=== PATIENT | female | born 1955 | race Caucasian/White ===

== ENCOUNTER 2021-03-31 10:36 | Outpatient (CLI) | payer OTHER, SELFPAY ==
--- NOTE | 2021-03-31 10:46 | MM_ITS ---
WS: [id number] BILATERAL DIGITAL SCREENING MAMMOGRAPHY WITH CAD CLINICAL INFORMATION: SCREENING HISTORY: Screening mammogram. No current complaints. COMPARISON: TECHNIQUE: Bilateral CC and MLO views. FINDINGS: The breasts are composed of heterogeneous fibroglandular density tissue, which can limit the detectio n of small underlying mass lesions. Lucent centered calcifications. Vascular calcification. A few pun ctate calcifications right breast. No suspicious mass, asymmetry, calcifications, or architectural di stortion. No evidence of malignancy. MM/[place] [id number] IMPRESSION: BI-RADS: 2-Benign FOLLOW UP: 1 Year Follow-up Recommend return to annual screening mammography.
== END 2021-03-31 10:37 | disposition home or self-care (01) ==
LOC: RADSHAW 10:40
PROVIDERS: Family Provider Family Medicine; PCP Family Medicine; Visit Provider Family Medicine
DX: Z12.31 Encounter for screening mammogram for malignant neoplasm of breast (principal)
CPT/HCPCS: 77067

== ENCOUNTER 2021-11-28 09:55 | Outpatient (CLI) | payer MEDICARE, SELFPAY ==
[2021-11-28 09:30] VITALS: BP 141/95; PULSE 80; RESP 16; TEMP 36.8; O2SAT 95; BMI 29.2
[2021-11-28 10:23] VITALS: BP 145/96; PULSE 76; RESP 16; TEMP 36.6; O2SAT 96
[2021-11-28 11:45] VITALS: BP 136/99; PULSE 70; RESP 16; TEMP 36.9; O2SAT 95
== END 2021-11-28 09:56 | disposition home or self-care (01) ==
LOC: OPS 10:30
PROVIDERS: PCP Family Medicine; Visit Provider Nurse Practitioner
DX: U07.1 COVID-19 (principal)
CPT/HCPCS: 96365

== ENCOUNTER 2022-06-24 14:29 | Outpatient (CLI) | payer MEDICARE, BC, SELFPAY ==
--- NOTE | 2022-06-24 14:37 | MM_ITS ---
WS: [id number] BILATERAL 3D TOMOSYNTHESIS DIGITAL SCREENING MAMMOGRAPHY WITH CAD CLINICAL INFORMATION: SCREENING HISTORY: Screening mammogram. No current complaints. COMPARISON: March 31, 2021 TECHNIQUE: Bilateral CC and MLO views. FINDINGS: The breasts are composed of heterogeneous fibroglandular density tissue, which can limit the detectio n of small underlying mass lesions. No suspicious mass, asymmetry, calcifications, or architectural d istortion. No evidence of malignancy. MM/[place] [id number] IMPRESSION: BI-RADS: 1-Negative FOLLOW UP: 1 Year Follow-up Recommend return to annual screening mammography.
== END 2022-06-24 14:30 | disposition home or self-care (01) ==
LOC: RAD 14:30
PROVIDERS: PCP Family Medicine; Visit Provider Family Medicine
DX: Z12.31 Encounter for screening mammogram for malignant neoplasm of breast (principal)
CPT/HCPCS: 77063; 77067

== ENCOUNTER 2022-08-30 15:20 | Outpatient (CLI) | payer MEDICARE, BC, SELFPAY ==
--- NOTE | 2022-08-30 15:39 | XR_ITS ---
WS: [id number] SCREENING DEXA SCAN [place] CLINICAL INFORMATION: POST MENOPAUSAL COMPARISON: None. FINDINGS: The L1-L4 bone mineral density measures 0.791 g/cm2. This corresponds to a T score score of -3.2 and Z score of -2.1. Left femoral neck bone mineral density measures 0.720 g/cm2. This corresponds to a T score of -2.3 an d Z score of -1.4. Right femoral neck bone mineral density measures 0.711 g/cm2. This corresponds to a T score -2.4of an d Z score of -1.5. Mean femoral neck bone mineral density measures 0.715 g/cm2. This corresponds to a T score of -2.3 an d Z score of -1.4. XR/XR DEXA axial skeleton* [id number] IMPRESSION: Osteoporosis lumbar spine. Osteopenia femoral necks. Patient's FRAX calculated 10 year probability for major osteoporotic fracture i s 22.5 % and osteoporotic hip fracture is 5.4%.
== END 2022-08-30 15:21 | disposition home or self-care (01) ==
LOC: RAD 15:21
PROVIDERS: PCP Family Medicine; Visit Provider Family Medicine
DX: Z78.0 Asymptomatic menopausal state (principal)
CPT/HCPCS: 77080

== ENCOUNTER 2024-03-12 14:49 | Outpatient (CLI) | payer MEDICARE, OTHER, SELFPAY ==
--- NOTE | 2024-03-12 14:53 | MM_ITS ---
WS: [id number] BILATERAL 3D TOMOSYNTHESIS DIGITAL SCREENING MAMMOGRAPHY WITH CAD CLINICAL INFORMATION: SCREENING HISTORY: Screening mammogram. No current complaints. COMPARISON: 2021 TECHNIQUE: Bilateral CC and MLO views. FINDINGS: The breasts are composed of heterogeneous fibroglandular density tissue, which can limit the detectio n of small underlying mass lesions. No suspicious mass, asymmetry, calcifications, or architectural d istortion. No evidence of malignancy. MM/[place] [id number] IMPRESSION: BI-RADS: 1-Negative FOLLOW UP: 1 Year Follow-up Recommend return to annual screening mammography.
== END 2024-03-12 14:50 | disposition home or self-care (01) ==
LOC: RAD 14:49
PROVIDERS: PCP Family Medicine; Visit Provider Family Medicine
DX: Z12.31 Encounter for screening mammogram for malignant neoplasm of breast (principal)
CPT/HCPCS: 77063; 77067

== ENCOUNTER 2024-07-31 18:08 | Emergency (ER) | payer MEDICARE, OTHER, SELFPAY ==
--- NOTE | 2024-07-31 18:09 | XRR_ITS ---
PROCEDURE INFORMATION: Exam: XR Right Foot Exam date and time: 07/31/2024 6:20 PM Age: 68 years old Clinical indication: Injury or trauma; Other: PT states she was mowing and a rock flew up and hit the top of her foot. Other: Pain TECHNIQUE: Imaging protocol: Radiologic exam of the right foot. Views: 3 or more views. COMPARISON: No relevant prior studies available. FINDINGS: Bones/joints: Normal. Soft tissues: Prominent soft tissue swelling involves the dorsum of the foot. No foreign body. XR/XR foot RT min 3V* [id number] IMPRESSION: Soft tissue swelling without fracture
[2024-07-31 18:13] VITALS: BP 190/113; PULSE 105; TEMP 36.6; O2SAT 97
--- NOTE | 2024-07-31 18:25 | ED_ITS ---
HPI - Extremity Problem General: Chief complaint: Extremity Injury, Lower Stated complaint: Rt Foot Injury Time Seen by Provider: 07/31/24 18:13 Source: patient Mode of arrival: ambulatory Limitations: no limitations History of Present Illness: 68-year-old female who states she was mo wing and had a rock fly and hit her on the top of her right foot she had bleeding at the site she does have a small l aceration to the dorsum of her foot she is unsure when her last tetanus was she has pain in her foot she rates a 4 out of 10. Associated symptoms: Deny chest pain, fever(s) or rash Related Data Home Medications Medication Instructions Recorded Confirmed Blood Pressure Med 11/28/21 Allergies Allergy/AdvReac Type Severity Reaction Status Date / Time Penicillins Allergy Unknown Verified 07/31/24 18:17 Review of Systems Const: Denies: fever(s), chills, body aches or change in appetite ENMT: Denies: throat pain or dental pain Card: Denies: chest pain Resp: Denies: dyspnea GI: Denies: abdominal pain, nausea, vomiting or diarrhea Musc: Reports: extremity pain; Denies: neck pain or back pain Skin/Breast: Denies: rash Neuro: Denies: headache(s) Physical Exam Const: COMMON NORMALS: no acute distress, patient oriented x3 and healthy appearing HENMT: COMMON NORMALS: normocephalic and atraumatic HEAD & SCALP: normocephalic and atraumatic Eye: COMMON NORMALS: conjunctivae normal CONJUNCTIVA: Yes conjunctivae normal Neck/C-Spine: COMMON NORMALS: full ROM and supple Chest: COMMONS NORMALS: normal inspection of the chest Resp: COMMON NORMALS: normal respiratory effort Extremity: COMMON NORMALS: full ROM NARRATIVE EXTREMITY EXAM: Hematoma dorsum of right foot with the small puncture wound minimal active bleeding at this time Neuro: COMMON NORMALS: patient oriented x3, moves all extremities and no focal motor deficits Psych: COMMON NORMALS: mental status grossly normal, Normal thought process present and cooperative THOUGHT PROCESS: Normal thought process present Skin: COMMON NORMALS: no rashes or lesions noted GENERAL SKIN EXAM: no rashes or lesions noted Procedures Laceration Laceration 1: Site: lower extremity Side (If applicable): right Size (cm): 1 Description: linear Depth: simple, single layer Local Anesthetic: lidocaine 1% Amount of anesthesia used (mL): 6 Pre-repair: wound explored, irrigated extensively and deep structures intact Skin layer closed with: other (dermabond) Course Vital Signs: Vital signs: Vital Signs Temperature 97.8 F 07/31/24 18:13 Pulse Rate 105 H 07/31/24 18:13 Blood Pressure 190/113 07/31/24 18:13 Pulse Oximetry 97 07/31/24 18:13 Oxygen Delivery Me thod Room Air 07/31/24 18:13 MDM - Extremity (Nontraumatic) Medical Decision Making Patient presents here with puncture wound to the right foot along with a hematoma bleeding is controlled no signs of arterial injury distal sensation intact good cap refill the toes did close the wound with Dermabond x-ray showed no fracture she stable for discharge Medical Records I reviewed the patient's medical records. XR interpretation done by ED provider, pending radiology final review ED provider radiology interpretation(s): xr l foot: no acute fx Discharge Plan Discharge Patient Disposition: Home Clinical Impression: Foot laceration Qualifiers: Encounter type: initial encounter Laterality: right Qualified Code(s): S91.311A - Laceration without foreign body, right foot, initial encounter Condition: Stable Prescriptions: No Action Blood Pressure Med Discharge Orders: Discharge ED (Routine); Ordered 07/31/24 Ordered By: Ricardo Shankar Referrals: Syd Chou MD [Primary Care Provider] - 4-7 days Discharge Diet: Advance as tolerated Discharge Activity: Resume usual activity Patient Instructions: Laceration (ED), Skin Adhesive Care (ED) Coding Level of Care Code ED Apartment Community Manager for Madhuri Ramirez
[2024-07-31] MEDS: tetanus-dipt-pertussis 0.5 mL SDV IM (18:42)
[2024-07-31 18:52] VITALS: BP 152/88; PULSE 76; RESP 18; O2SAT 96
== END 2024-07-31 18:55 | disposition home or self-care (01) ==
PROVIDERS: Emergency Provider Emergency Medicine; PCP Family Medicine
DX: S91.311A Laceration without foreign body, right foot, initial encounter (principal); W20.8XXA Other cause of strike by thrown, projected or falling object, initial encounter; Y93.H2 Activity, gardening and landscaping; Z23 Encounter for immunization
CPT/HCPCS: 12001; 73630; 90471; 90715; 99283

== ENCOUNTER 2024-10-29 11:38 | Outpatient (CLI) | payer MEDICARE, OTHER, SELFPAY ==
--- NOTE | 2024-10-29 | ECG_ITS ---
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 Interpretive Statements EXERCISE MIBI : EXERCISE DATA: The patient was exercised by Henrique protocol. Baseline heart rate was 69 beats per minute. Baseline blood pressure was 147/99 millimeters of mercury. Maximal predicted heart rate was 153 beats per minute. Maximum heart rate achieved was 167, which was 109% of the maximum predicted heart rate. Maximum blood pressure was 194/97 millimeters of mercury. Total exercise time was 7 minutes. Maximum METs achieved was 10.2. The reason for ending the test was completion of the protocol. The patient complained of shortness of breath during the stress test, which then resolved at the end of the test. ELECTROCARDIOGRAM: BASELINE: Showed sinus rhythm, normal axis, no significant ST-T changes at the baseline noted. [] EXERCISE: At the peak exercise level, [] No significant ST-T changes suggestive of ischemia noted. [] RECOVERY: During the recovery period, heart rate dropped appropriately. No significant ST-T changes in the recovery suggestive of ischemia noted. [] CONCLUSION: 1. Exercise capacity is good. 2. Heart rate response was appropriate 3. Blood pressure response was appropriate 4. Symptoms not suggestive of ischemia. 5. Electrocardiogram portion of the stress test was not suggestive of ischemia. 6. Nuclear scan will be documented separately. Electronically Signed On 11-04-2024 20:28:41 SAILING MASTER by Dayton Tineo M.D. [email or web address]
[2024-10-29 11:53] VITALS: BMI 30.5
[2024-10-29 12:16] VITALS: BP 163/89; PULSE 94
== END 2024-10-29 11:39 | disposition home or self-care (01) ==
PROVIDERS: PCP Family Medicine; Visit Provider Family Medicine
DX: R07.89 Other chest pain (principal); R06.02 Shortness of breath
CPT/HCPCS: 93017

== ENCOUNTER 2024-10-29 12:26 | Outpatient (CLI) | payer MEDICARE, OTHER, SELFPAY ==
--- NOTE | 2024-10-29 12:29 | XR_ITS ---
WS: [id number] DEXA (DUAL ENERGY X-RAY ABSORPTIOMETRY) Bone mineral density was performed using a [employer] machine. HISTORY: OSTEOPOROSIS COMPARISON: 08/30/2022 Lumbar spine BMD (L1-L4): 0.820 g/cm2 T score: -3.0 Z score: -1.9 Total hip BMD: Left: 0.717 g/cm2. T score: -2.3 Z score: -1.4 Right: 0.703 g/cm2. T score: -2.4 Z score: -1.5 10 year probability of a major osteoporotic fracture is 23.9%. Compared to the prior study from 08/30/2022. Lumbar spine bone mineral density has increased by 3.7%. Bilateral hips bone mineral density has decreased by 0.7%. XR/XR DEXA axial skeleton* [id number] IMPRESSION: OSTEOPOROSIS based upon the WHO classification for females. There has been a significant increase in bone mineral density within the lumbar spine since the prior study. No significant change of bone mineral density within the hips.
== END 2024-10-29 12:27 | disposition home or self-care (01) ==
LOC: RAD 12:26
PROVIDERS: PCP Family Medicine; Visit Provider Family Medicine
DX: Z13.820 Encounter for screening for osteoporosis (principal); M81.0 Age-related osteoporosis without current pathological fracture
CPT/HCPCS: 77080

== ENCOUNTER 2025-09-12 13:55 | Outpatient (CLI) | payer MEDICARE, OTHER, SELFPAY ==
--- NOTE | 2025-09-12 14:04 | MM_ITS ---
WS: [id number] BILATERAL SCREENING DIGITAL TOMOSYNTHESIS MAMMOGRAM WITH CAD HISTORY: SCREENING COMPARISON: 03/12/2024, 06/24/2022, 03/31/2021 Bilateral CC and MLO views with tomosynthesis and synthetic mammography submitted. Computer aided detection analyzed. Breast composition: There are scattered areas of fibroglandular density. No suspicious masses, microcalcifications or architectural distortion. MM/MM scr BI tomosynthesis [id number] IMPRESSION: BI-RADS: 1 - Negative. FOLLOW UP: 1 Year Follow-up
== END 2025-09-12 13:56 | disposition home or self-care (01) ==
LOC: RAD 13:59
PROVIDERS: PCP Family Medicine; Visit Provider Family Medicine
DX: Z12.31 Encounter for screening mammogram for malignant neoplasm of breast (principal); R92.323 Mammographic fibroglandular density, bilateral breasts
CPT/HCPCS: 77063; 77067